=== PATIENT | female | born 1955 | race Two or more races ===

== ENCOUNTER 2025-02-01 07:15 | Inpatient (IN) | payer OTHER ==
[~2025-02-01] VITALS: Ht 160 cm; Wt 68.9 kg
[~2025-02-01 07:15] MED LIST: AMLODIPINE BESYL5 MG PO; AMOX-CLAV 875-1 EACH PO; BUSPIRONE HCL10 MG PO; METFORMIN HCL500 M3 PO; MIRTAZAPINE30 MG PO; NEURONTIN800 MG PO; PLAVIX75 MG PO; PRILOSEC OTC20 MG; SIMVASTATIN40 MG PO; TRICOR145 MG; TRICOR145 MG PO; VITAMINA D
[2025-02-01 07:38] VITALS: BP 159/83
[2025-02-01] MEDS ORDERED: SYNTHROID112 MCG PO (07:38)
[2025-02-01 07:45] LABS: BASO % 0.5 % (0.1-1.2); EOS # 0.23 (0.04-0.54); HEMATOCRIT 34.7 % (34.1-44.9); HEMOGLOBIN 11.3 g/dL (11.2-15.7); LYMPH # 2.84 (1.18-3.74); LYMPH % 36.9 % (19.3-53.1); MEAN CORPUSCULAR HEMOGLOBIN 29.2 pg (25.6-32.2); MONO # 0.72 (0.24-0.82); MONO % 9.4 % (4.7-12.5); NEUT # 3.82 (1.56-6.13); NEUT % 49.7 % (34.0-71.1); PLATELET COUNT 346 K/uL (163-369); RED BLOOD COUNT 3.87 M/uL (3.93-5.22); RED CELL DISTRIBUTION WIDTH 12.7 % (11.6-14.4)
[2025-02-01 07:53] LABS: COVID-19 AG NEGATIVE (NEGATIVE)
[2025-02-01 07:58] LABS: URINE APPEARANCE Clear; URINE BILIRRUBIN Negative (NEGATIVE); URINE BLOOD Negative; URINE COLOR Yellow; URINE GLUCOSE Negative (NEGATIVE); URINE KETONE Negative (NEGATIVE); URINE LEUKOCYTE Trace; URINE NITRATE Negative; URINE PROTEIN Negative (NEGATIVE); URINE UROBILINOGEN 0.2 E.U./dl
[2025-02-01 07:59] LABS: INR 1.03; PARTIAL THROMBOPLASTIN TIME 27.3 SECONDS (22.0-34.0); PROTHROMBIN TIME 11.2 SECONDS (9.0-11.5)
[2025-02-01 08:01] LABS: URINE BACTERIA 203.1 uL (0.0-1933); URINE EPITHELIAL CELLS 6.1 uL (0.0-38.8); URINE WBC 17.8 uL (0.0-23.2)
[2025-02-01 08:28] LABS: ALBUMIN 4.3 gm/dL (3.4-5.0); BILIRUBIN TOTAL 0.32 mg/dL (0.3-1.2); CALCIUM 9.9 mg/dL (8.5-10.1); CREATININE SERUM 0.66 mg/dL (0.55-1.02); GFR 88.54; GLOBULINA 3.2 G/DL (2.4-3.5); POTASSIUM 4.72 mEq/L (3.5-5.1); TOTAL PROTEIN 7.5 gm/dL (6.4-8.2)
[2025-02-01 08:49] LABS: URINE CAST 0.44 uL (0.0-1.40); URINE RBC 1.4 uL (0.0-20.8)
[2025-02-01 09:17] LABS: RH POSITIVE
[2025-02-08] MEDS ORDERED: CEFTRIAXONE SODIUM 2,000 MG VIAL ONE (14:06)
[2025-02-08] MEDS ORDERED: METRONIDAZOLE/SODIUM CHLORIDE 500 MG/100 ML PIGGYBACK IV ONE (14:11)
[2025-02-08] MEDS ORDERED: POVIDONE-IODINE 118 ML BOTT TOP ONE (14:52)
[2025-02-08] MEDS ORDERED: BUPIVACAINE HCL/MPF 0.5% 30ML VIAL ONE (15:48)
[2025-02-08] MEDS ORDERED: LIDOCAINE HCL 1%/EPINEPHRINE 20ML VIAL IJ ONE (15:48)
[2025-02-08] MEDS ORDERED: ENALAPRILAT DIHYDRATE 1.25 MG/ML VIAL IV ONE (15:51)
[2025-02-08] MEDS ORDERED: SUGAMMADEX SODIUM 200 MG/2 ML VIAL IV ONE (18:09)
[2025-02-08] MEDS ORDERED: MORPHINE SULFATE 4 MG/ML CARTRIDGE IV PRN (19:15)
[2025-02-08] MEDS ORDERED: 0.9 % SODIUM CHLORIDE 1,000 ML IV SCH (19:15)
[2025-02-08] MEDS ORDERED: OxyCODONE HCL 5 MG TABLET (ROXICODONE) PO PRN (19:15)
[2025-02-08] MEDS ORDERED: DEXTROSE 50 % IN WATER 0.5 G/ML VIAL IV PRN (19:15)
[2025-02-08] MEDS ORDERED: ONDANSETRON HCL 2 MG/ML VIAL IV PRN (19:15)
[2025-02-08] MEDS ORDERED: MORPHINE SULFATE 4 MG/ML VIAL IV ONE (19:45)
[2025-02-08] MEDS ORDERED: FAMOTIDINE/PF 20 MG/2 ML VIAL IV PUSH SCH (21:00)
[2025-02-08] MEDS ORDERED: FAMOTIDINE/PF 20 MG/2 ML VIAL ONE (23:11)
[2025-02-08 23:24] LABS: BASO % 0.2 % (0.1-1.2); HEMATOCRIT 36.3 % (34.1-44.9); HEMOGLOBIN 12.2 g/dL (11.2-15.7); LYMPH % 6.8 % (19.3-53.1); MEAN CORPUSCULAR HEMOGLOBIN 29.8 pg (25.6-32.2); MONO # 0.83 (0.24-0.82); MONO % 4.7 % (4.7-12.5); NEUT # 15.58 (1.56-6.13); PLATELET COUNT 339 K/uL (163-369); RED CELL DISTRIBUTION WIDTH 12.8 % (11.6-14.4)
[2025-02-08] MEDS ORDERED: ACETAMINOPHEN 500 MG GEL..CAP PO ONE (23:32)
[2025-02-08 23:47] LABS: ALBUMIN 3.9 gm/dL (3.4-5.0); CALCIUM 9.7 mg/dL (8.5-10.1); CREATININE SERUM 0.82 mg/dL (0.55-1.02); GFR 68.92; PHOSPHOROUS 3.3 mg/dL (2.5-4.9); POTASSIUM 3.64 mEq/L (3.5-5.1)
[2025-02-09] MEDS ORDERED: ACETAMINOPHEN 500 MG GEL..CAP PO SCH
[2025-02-09 00:02] LABS: MAGNESIUM 0.8 mg/dL (1.8-2.4)
[2025-02-09] MEDS ORDERED: MAGNESIUM SULFATE IN WATER 4 GM/100 ML PIGGYBACK IV SCH (00:30)
[2025-02-09] MEDS ORDERED: LEVOTHYROXINE SODIUM 112 MCG TABLET PO SCH (06:00)
[2025-02-09 06:15] LABS: BASO % 0.1 % (0.1-1.2); HEMATOCRIT 34.8 % (34.1-44.9); HEMOGLOBIN 11.8 g/dL (11.2-15.7); LYMPH # 1.72 (1.18-3.74); LYMPH % 10.7 % (19.3-53.1); MEAN CORPUSCULAR HEMOGLOBIN 30.1 pg (25.6-32.2); MONO # 0.67 (0.24-0.82); MONO % 4.2 % (4.7-12.5); NEUT # 13.59 (1.56-6.13); NEUT % 84.7 % (34.0-71.1); PLATELET COUNT 350 K/uL (163-369); RED BLOOD COUNT 3.92 M/uL (3.93-5.22); RED CELL DISTRIBUTION WIDTH 12.8 % (11.6-14.4)
[2025-02-09 07:02] LABS: ALBUMIN 3.8 gm/dL (3.4-5.0); CALCIUM 9.2 mg/dL (8.5-10.1); CREATININE SERUM 0.74 mg/dL (0.55-1.02); GFR 77.59; MAGNESIUM 3.2 mg/dL (1.8-2.4); PHOSPHOROUS 3.5 mg/dL (2.5-4.9); POTASSIUM 3.73 mEq/L (3.5-5.1)
[2025-02-09 08:00] VITALS: BP 150/70
[2025-02-09] MEDS ORDERED: BUSPIRONE HCL 5 MG TABLET PO SCH (09:00)
[2025-02-09] MEDS ORDERED: GABAPENTIN 800 MG TABLET PO SCH (09:00)
[2025-02-09] MEDS ORDERED: MAGNESIUM CHLORIDE 70 MG TABLET.DR PO SCH (09:00)
[2025-02-09] MEDS ORDERED: POLYETHYLENE GLYCOL 3350 17 GM BLIST.PACK PO SCH (09:00)
[2025-02-09] MEDS ORDERED: AMLODIPINE BESYLATE 5 MG TABLET PO SCH (09:00)
[2025-02-09] MEDS ORDERED: HYOSCYAMINE SULFATE 0.125 MG TAB.SUBL SL SCH (09:00)
[2025-02-09] MEDS ORDERED: LACTOBACILLUS ACIDOPHILUS 1 CAP CAP PO SCH (09:00)
[2025-02-09] MEDS ORDERED: MORPHINE SULFATE 4 MG/ML CARTRIDGE IV PRN (10:21)
[2025-02-09] MEDS ORDERED: MORPHINE SULFATE 4 MG/ML VIAL IV STA (10:21)
[2025-02-09] MEDS ORDERED: POTASSIUM PHOS,M-BASIC-D-BASIC 9 MM in 0.9 % SODIUM CHLORIDE 250 ML IV NR (12:15)
[2025-02-09 16:45] VITALS: BP 146/78
[2025-02-09] MEDS ORDERED: MORPHINE SULFATE 4 MG/ML CARTRIDGE IV STA (16:49)
[2025-02-09] MEDS ORDERED: FAMOtidine 20 MG TABLET PO SCH (17:00)
[2025-02-09] MEDS ORDERED: NAPH,MB-DB/K PH,MBDB 1 PKT PACKET PO SCH (17:00)
[2025-02-09] MEDS ORDERED: ENOXAPARIN SODIUM 40 MG/0.4 ML SYRINGE SUBCUTANEO SCH (17:00)
[2025-02-09] MEDS ORDERED: SIMVASTATIN 40 MG TABLET PO SCH (17:00)
[2025-02-10 00:17] VITALS: BP 143/80; O2SAT 97
[2025-02-10 07:33] LABS: BASO % 0.3 % (0.1-1.2); EOS # 0.06 (0.04-0.54); EOS % 0.5 % (0.7-7.0); HEMATOCRIT 33.9 % (34.1-44.9); HEMOGLOBIN 11.2 g/dL (11.2-15.7); LYMPH # 2.55 (1.18-3.74); LYMPH % 21.3 % (19.3-53.1); MEAN CORPUSCULAR HEMOGLOBIN 29.5 pg (25.6-32.2); MONO # 0.85 (0.24-0.82); MONO % 7.1 % (4.7-12.5); NEUT # 8.44 (1.56-6.13); NEUT % 70.5 % (34.0-71.1); PLATELET COUNT 319 K/uL (163-369)
[2025-02-10 07:46] LABS: ALBUMIN 3.5 gm/dL (3.4-5.0); CALCIUM 8.8 mg/dL (8.5-10.1); CREATININE SERUM 0.53 mg/dL (0.55-1.02); GFR 114.04; MAGNESIUM 1.7 mg/dL (1.8-2.4); PHOSPHOROUS 2.4 mg/dL (2.5-4.9); POTASSIUM 3.88 mEq/L (3.5-5.1)
[2025-02-10 08:00] VITALS: BP 150/80; O2SAT 98
[2025-02-10 17:52] VITALS: BP 140/80
[2025-02-11 00:08] VITALS: BP 133/77
[2025-02-11 08:00] VITALS: BP 139/81; O2SAT 99
[2025-02-11] MEDS ORDERED: ONDANSETRON 4 MG TAB.RAPDIS PO PRN (10:00)
[2025-02-11 16:00] VITALS: BP 150/84; O2SAT 98
[2025-02-11] MEDS ORDERED: MAGNESIUM SULFATE 50% 1,000 MG/2 ML VIAL IV ONE ×2 (17:30→18:30)
[2025-02-11] MEDS ORDERED: MAGNESIUM CHLORIDE 70 MG TABLET.DR PO ONE (18:15)
[2025-02-11] MEDS ORDERED: DIATRIZOATE MEGLUMINE, SODIUM 30 ML BOTTLE PO STA (18:18)
[2025-02-11] MEDS ORDERED: PIPERACILLIN/TAZOBACTAM SODIUM 3.375 GM VIAL IV STA (18:22)
[2025-02-11] MEDS ORDERED: MORPHINE SULFATE 4 MG/ML CARTRIDGE IV PRN (18:30)
[2025-02-11] MEDS ORDERED: SODIUM CHLORIDE 0.45 % 500 ML IV SCH (19:15)
[2025-02-11 23:42] VITALS: BP 150/80; O2SAT 98
[2025-02-12] MEDS ORDERED: PIPERACILLIN/TAZOBACTAM SODIUM 3.375 GM VIAL IV SCH
[2025-02-12 07:06] LABS: BASO % 0.4 % (0.1-1.2); EOS # 0.33 (0.04-0.54); EOS % 3.5 % (0.7-7.0); HEMATOCRIT 33.4 % (34.1-44.9); HEMOGLOBIN 11.1 g/dL (11.2-15.7); LYMPH # 2.18 (1.18-3.74); LYMPH % 23.1 % (19.3-53.1); MEAN CORPUSCULAR HEMOGLOBIN 28.9 pg (25.6-32.2); MONO # 0.79 (0.24-0.82); MONO % 8.4 % (4.7-12.5); NEUT # 6.06 (1.56-6.13); NEUT % 64.4 % (34.0-71.1); PLATELET COUNT 365 K/uL (163-369); RED BLOOD COUNT 3.84 M/uL (3.93-5.22); RED CELL DISTRIBUTION WIDTH 12.2 % (11.6-14.4)
[2025-02-12 07:17] LABS: ALBUMIN 3.3 gm/dL (3.4-5.0); CALCIUM 9.3 mg/dL (8.5-10.1); CREATININE SERUM 0.52 mg/dL (0.55-1.02); GFR 116.58; MAGNESIUM 1.9 mg/dL (1.8-2.4); PHOSPHOROUS 3.3 mg/dL (2.5-4.9); POTASSIUM 3.63 mEq/L (3.5-5.1)
[2025-02-12 08:00] VITALS: BP 146/70; O2SAT 98
[2025-02-12] MEDS ORDERED: NAPH,MB-DB/K PH,MBDB 1 PKT PACKET PO STA (11:04)
== END 2025-02-12 12:14 | disposition home or self-care (01) | DRG 743 ==
LOC: SURH 02-08 07:15 → O/R 02-08 13:28 → OB/GYN 02-08 13:28
PROVIDERS: Colon & Rectal Surgery; ADMIT Obstetrics & Gynecology Gynecologic Oncology; ATTEND Obstetrics & Gynecology Gynecologic Oncology
PROC: 0UT24ZZ Resection of Bilateral Ovaries, Percutaneous Endoscopic Approach (ICD-10-PCS; 2025-02-08)
PROC: 0DTG4ZZ Resection of Left Large Intestine, Percutaneous Endoscopic Approach (ICD-10-PCS; 2025-02-08)
PROC: 07BB4ZZ Excision of Mesenteric Lymphatic, Percutaneous Endoscopic Approach (ICD-10-PCS; 2025-02-08)
PROC: 0UT94ZZ Resection of Uterus, Percutaneous Endoscopic Approach (ICD-10-PCS; principal; 2025-02-08 09:50)
PROC: 0UT74ZZ Resection of Bilateral Fallopian Tubes, Percutaneous Endoscopic Approach (ICD-10-PCS; 2025-02-08 09:50)
DX: N80.03 Adenomyosis of the uterus (principal); D27.1 Benign neoplasm of left ovary; D12.4 Benign neoplasm of descending colon; E11.9 Type 2 diabetes mellitus without complications; E03.9 Hypothyroidism, unspecified